=== PATIENT | female | born 1955 | race Caucasian/White ===

== ENCOUNTER 2021-08-07 07:55 | Day surgery (SDC) | payer MEDICAID, SELFPAY ==
[~2021-08-07] VITALS: Ht 165.1 cm; Wt 93.0 kg
[2021-08-07] MEDS ORDERED: IOPAMIDOL 50 ML VIAL IV ONE (07:56)
[2021-08-07] MEDS ORDERED: BUPIVACAINE /PF 0.25% 30 ML VIAL INJ ONE (07:56)
[2021-08-07] MEDS ORDERED: methylPREDNISolone ACETATE 80 MG/ML IM ONE (07:56)
[2021-08-07] MEDS ORDERED: LIDOCAINE 2%, 20 ML MDV INJ ONE (07:56)
[2021-08-07] MEDS ORDERED: DIPHENHYDRAMINE INJ 50 MG/ML VIAL ONE (10:35)
[2021-08-07] MEDS ORDERED: MIDAZOLAM HCL 5 MG/5 ML VIAL ONE (10:36)
[2021-08-07 16:01] VITALS: BP_SYST 141
== END 2021-08-07 12:00 | disposition home or self-care (01) ==
LOC: SDS 07:55 → SMU 07:59 → SDS 12:00
PROVIDERS: ATTEND Internal Medicine
DX: M47.816 Spondylosis without myelopathy or radiculopathy, lumbar region (principal); M50.10 Cervical disc disorder with radiculopathy, unspecified cervical region; G89.4 Chronic pain syndrome; I10 Essential (primary) hypertension; F41.9 Anxiety disorder, unspecified; Z88.2 Allergy status to sulfonamides; Z20.822 Contact with and (suspected) exposure to COVID-19; Z79.899 Other long term (current) drug therapy
CPT/HCPCS: 36415; 64493; 87426; J1200; J2250; 76000; J1040; J2001; J3490; Q9967